=== PATIENT | male | born 1960 | race African-American/Black ===

== ENCOUNTER 2019-05-20 19:09 | Emergency (ER) | payer MEDICAID, OTHER ==
[~2019-05-20] VITALS: Ht 177.8 cm; Wt 66.0 kg
[2019-05-21] MEDS ORDERED: TRAMADOL 50MG TABLET PO ONE (01:45)
[2019-05-21] MEDS ORDERED: ACETAMINOPHEN 500MG TABLET PO ONE (01:45)
[2019-05-21 01:52] VITALS: BP 127/78
[2019-05-21 01:57] LABS: CHLORIDE 101 mEq/L (98-107)
[2019-05-21 02:02] LABS: BASOPHILS % 0.2 % (0.0-2.0); HEMATOCRIT. 27.2 % (42.0-52.0); HEMOGLOBIN. 8.8 g/dL (14.0-18.0); LYMPHOCYTES % 16.3 % (20.0-50.0); MEAN CORPUSCULAR HEMOGLOBIN 26.6 pg (28.0-32.0); MEAN CORPUSCULAR VOLUME 81.8 fL (80.0-94.0); MEAN PLATELET VOLUME 8.4 fl (7.4-10.4); MONOCYTES % 9.8 % (2.0-8.0); NEUTROPHILS % 72.7 % (40.0-76.0); PLATELET 146 x1000/uL (130-400); RED BLOOD CELL COUNT 3.33 mill/uL (4.7-6.1); RED CELL DISTRIBUTION WIDTH 17.6 % (11.6-14.6)
[2019-05-21 02:11] LABS: PROTHROMBIN TIME 53.5 sec (9.6-11.0)
[2019-05-21 03:06] LABS: INR 5.6; PARTIAL THROMBOPLASTIN TIME 81.2 sec (23.4-31.0)
== END 2019-05-21 07:35 | disposition home or self-care (01) ==
LOC: ER 19:09
DX: S40.012A Contusion of left shoulder, initial encounter (principal); R60.0 Localized edema; R79.1 Abnormal coagulation profile; I11.9 Hypertensive heart disease without heart failure; Z85.819 Personal history of malignant neoplasm of unspecified site of lip, oral cavity, and pharynx; Z95.1 Presence of aortocoronary bypass graft; Z87.891 Personal history of nicotine dependence; Z93.1 Gastrostomy status; Z79.01 Long term (current) use of anticoagulants; Z95.2 Presence of prosthetic heart valve; X58.XXXA Exposure to other specified factors, initial encounter; Y93.89 Activity, other specified; Y92.018 Other place in single-family (private) house as the place of occurrence of the external cause
CPT/HCPCS: 36415; 71045; 73200; 80048; 85025; 85610; 85730; 93005; 93971; 99284; Z7610

== ENCOUNTER 2020-03-25 14:01 | Inpatient (IN) | payer MEDICARE, MEDICAID ==
[~2020-03-25] VITALS: Ht 182.9 cm; Wt 68.3 kg
[2020-03-25] MEDS ORDERED: MORPHINE SULFATE 4 MG/ML CPJ (NOT FOR IM USE) IV STA (15:32)
[2020-03-25 15:52] LABS: HEMATOCRIT. 28.5 % (42.0-52.0); HEMOGLOBIN. 9.1 g/dL (14.0-18.0); MEAN CORPUSCULAR HEMOGLOBIN 27.2 pg (28.0-32.0); MEAN CORPUSCULAR VOLUME 85.2 fL (80.0-94.0); MEAN PLATELET VOLUME 6.9 fl (7.4-10.4); PLATELET 663 x1000/uL (130-400); RED BLOOD CELL COUNT 3.34 mill/uL (4.7-6.1); RED CELL DISTRIBUTION WIDTH 15.9 % (11.6-14.6)
[2020-03-25 15:58] LABS: CHLORIDE 100 mEq/L (98-107)
[2020-03-25 16:03] LABS: D-DIMER 0.77 mg/L FEU (<0.50); ETHANOL BLOOD < 10 mg/dL; PARTIAL THROMBOPLASTIN TIME 68.2 sec (23.4-31.0); PROTHROMBIN TIME 41.9 sec (9.6-11.0)
[2020-03-25 16:12] LABS: PLATELET ESTIMATE MARKEDLY INCREASED
[2020-03-25 16:15] LABS: INR 4.3
[2020-03-25 16:40] LABS: CLARITY URINE CLEAR (CLEAR); COLOR URINE YELLOW (YELLOW); KETONES URINE NEGATIVE (NEGATIVE); LEUKOCYTE ESTERASE URINE NEGATIVE (NEGATIVE); NITRITE URINE NEGATIVE (NEGATIVE); OCCULT BLOOD URINE NEGATIVE (NEGATIVE); PH URINE 8.5 (4.5-8.0); PROTEIN URINE NEGATIVE (NEGATIVE); SPECIFIC GRAVITY URINE 1.006 (1.005-1.030); UROBILINOGEN URINE 0.2 E.U./dL (0.2-1.0)
[2020-03-25] MEDS ORDERED: LORAZEPAM 2MG/ML CPJ IV PRN (16:45)
[2020-03-25] MEDS ORDERED: ONDANSETRON HCL 4MG/2ML INJ IV PRN (16:45)
[2020-03-25 16:54] LABS: *AMPHETAMINES SCREEN URINE NEGATIVE (NEGATIVE)
[2020-03-25 16:55] LABS: *BARBITURATES SCREEN URINE NEGATIVE (NEGATIVE); *BENZODIAZEPINES SCREEN URINE NEGATIVE (NEGATIVE); *COCAINE SCREEN URINE NEGATIVE (NEGATIVE); METHADONE URINE SCREEN NEGATIVE (NEGATIVE); OPIATES URINE SCREEN PRESUMTIVE POSITIVE (NEGATIVE); PHENCYCLIDINE URINE SCREEN NEGATIVE (NEGATIVE)
[2020-03-25 16:56] LABS: CANNABINOID URINE SCREEN NEGATIVE (NEGATIVE)
[2020-03-25] MEDS ORDERED: SODIUM CHLORIDE 0.9% 1000ML BAG (SEPSIS BOLUS) IV ONE (17:00)
[2020-03-25] MEDS ORDERED: VANCOMYCIN 1 G PREMIX 200 ML IV SCH (17:00)
[2020-03-25] MEDS ORDERED: PIPERACILLIN/TAZOBACTAM 3.375GM/50ML PREMIX IV ONE (17:00)
[2020-03-25] MEDS ORDERED: PIPERACILLIN/TAZOBACTAM 3.375 G in DEXT 5% WATER 100 ML IV SCH (17:00)
[2020-03-25 17:30] VITALS: BP 106/69
[2020-03-25] MEDS: SODIUM CHLORIDE 0.9% 1,000 ML IV SCH (18:43)
[2020-03-25 20:00] VITALS: BP 112/67
[2020-03-25 22:00] VITALS: BP 100/61
[2020-03-25] MEDS: HYDROMORPHONE HCL/PF 2MG/ML CPJ IV PRN (23:37)
[2020-03-26] VITALS (11 sets, daily range): BP systolic 124–163; BP diastolic 63–121
[2020-03-26] MEDS: SODIUM CHLORIDE 0.9% 1,000 ML IV SCH ×2 (03:00→08:10)
[2020-03-26 06:17] LABS: BASOPHILS % 0.4 % (0.0-2.0); EOSINOPHILS % 1.2 % (0.0-5.0); HEMOGLOBIN. 8.5 g/dL (14.0-18.0); LYMPHOCYTES % 15.7 % (20.0-50.0); MEAN CORPUSCULAR HEMOGLOBIN 27.6 pg (28.0-32.0); MEAN CORPUSCULAR VOLUME 84.8 fL (80.0-94.0); MEAN PLATELET VOLUME 7.5 fl (7.4-10.4); MONOCYTES % 11.4 % (2.0-8.0); NEUTROPHILS % 71.3 % (40.0-76.0); PLATELET 535 x1000/uL (130-400); RED BLOOD CELL COUNT 3.07 mill/uL (4.7-6.1)
[2020-03-26 06:31] LABS: CHLORIDE 106 mEq/L (98-107)
[2020-03-26 06:47] LABS: HDL CHOLESTEROL 47 mg/dL (40-59)
[2020-03-26 06:54] LABS: LDL CHOLESTEROL 76 mg/dL (5-100); PROTHROMBIN TIME 29.5 sec (9.6-11.0)
[2020-03-26] MEDS: HYDROMORPHONE HCL/PF 2MG/ML CPJ IV PRN (08:04)
[2020-03-26 10:13] LABS: T4 FREE 1.25 ng/dL (0.76-1.46)
[2020-03-26 17:09] LABS: CREATINE KINASE 66 IU/L (39-308)
[2020-03-26 17:11] LABS: CREATINE KINASE MB FRACTION 1.1 ng/mL (0.5-3.6)
[2020-03-26] MEDS ORDERED: WARFARIN SODIUM 4MG TABLET PO NR (18:00)
[2020-03-27] MEDS ORDERED: WARFARIN SODIUM 2.5MG TABLET PO ONE (09:00)
== END 2020-03-26 17:10 | disposition home or self-care (01) | DRG 73 ==
LOC: ER 14:16 → EDBEDREQTM 15:31 → EDBEDREQ 15:31 → ENRESERV 16:00 → 5EST 18:31
PROVIDERS: ADMIT Hospitalist; ATTEND Hospitalist
DX: G90.8 Other disorders of autonomic nervous system (principal); E43 Unspecified severe protein-calorie malnutrition; E87.2 Acidosis; R55 Syncope and collapse; I11.9 Hypertensive heart disease without heart failure; I95.9 Hypotension, unspecified; M54.2 Cervicalgia; I25.10 Atherosclerotic heart disease of native coronary artery without angina pectoris; Z90.49 Acquired absence of other specified parts of digestive tract; Z93.1 Gastrostomy status; Z95.1 Presence of aortocoronary bypass graft; Z95.2 Presence of prosthetic heart valve; C14.0 Malignant neoplasm of pharynx, unspecified
CPT/HCPCS: 36415; 71045; 80053; 80061; 80305; 80320; 81003; 82550; 82553; 83036; 83605; 83880; 84439; 84443; 84484; 85025; 85379; 93005; 93306; 93970; 99285; J1170; J2543; J7030; J7060; G0480